=== PATIENT | male | born 1935 | race Caucasian/White ===

== ENCOUNTER 2018-12-22 09:51 | Emergency (ER) | payer MEDICARE, OTHER ==
[~2018-12-22 09:51] MED LIST: B2/V1TAB PO; CYAN50003 PO; LANS15CA12 PO; NAPR220C15 PO; ROSU20TA23 PO; SAW450CA7 PO; TIMO5DRO27 OD
[2018-12-22 10:38] LABS: BASOPHILS % (AUTO) 0.5 % (0.0-5.0); EOSINOPHILS % (AUTO) 0.4 % (0.0-8.0); LYMPHOCYTES % (AUTO) 6.7 % (21.0-51.0); MEAN CORPUSCULAR HEMOGLOBIN 30.9 pg (27.0-33.0); MEAN CORPUSCULAR HGB CONC 33.8 g/dL (32.0-36.0); MEAN CORPUSCULAR VOLUME 91.6 fL (79-99); MONOCYTES % (AUTO) 8.4 % (3.0-13.0); PLATELET COUNT (AUTO) 234 K/uL (130-400); RED BLOOD CELL COUNT(AUTO) 5.02 MIL/uL (4.50-6.20); RED CELL DISTRIBUTION WIDTH 13.1 % (11.0-15.5); WHITE BLOOD COUNT (AUTO) 11.9 K/uL (4.8-10.8)
[2018-12-22 10:51] LABS: POTASSIUM 3.6 mmol/L (3.5-5.1)
[2018-12-22 10:57] LABS: ALBUMIN 3.8 g/dL (3.5-5.0); BILIRUBIN,TOTAL 0.9 mg/dL (0.2-1.0); TOTAL PROTEIN, SERUM 8.1 g/dL (6.0-8.3)
[2018-12-22] MEDS ORDERED: MORPHINE SULFATE 2 MG/ML 1ML SYG ONE (11:18)
[2018-12-22 11:59] LABS: APPEARANCE,URINE Clear (CLEAR); BILIRUBIN,URINE Negative (NEGATIVE); COLOR,URINE Yellow (YELLOW); GLUCOSE, URINE (UA) Negative (NEGATIVE); KETONES,URINE Negative (NEGATIVE); LEUKOCYTE ESTERASE ,URINE Moderate (NEGATIVE); NITRATE,URINE Negative (NEGATIVE); OCCULT BLOOD,URINE Trace (NEGATIVE); PH,URINE 6.5 (5.0-8.0); PROTEIN,URINE Negative (NEGATIVE)
[2018-12-22 12:41] LABS: BACTERIA,URINE Few /HPF (None Seen); RBC,URINE 0-1 /HPF (0-1)
[2018-12-22] MEDS ORDERED: LIDOCAINE 5% TOPICAL PATCH TP ONE (13:15)
== END 2018-12-22 14:33 | disposition home or self-care (01) ==
LOC: EDH 09:51
DX: M54.5 Low back pain (principal); I71.4 Abdominal aortic aneurysm, without rupture; E78.5 Hyperlipidemia, unspecified; I10 Essential (primary) hypertension; Z87.891 Personal history of nicotine dependence
CPT/HCPCS: 36415; 72131; 80053; 81001; 82270; 85025; 85651; 86140; 87077; 87088; 87186; 96374

== ENCOUNTER 2021-01-19 09:46 | Observation (INO) | payer OTHER ==
[2021-01-14 13:39] LABS: BASOPHILS % (AUTO) 1.1 % (0.0-5.0); EOSINOPHILS % (AUTO) 16.1 % (0.0-8.0); HEMATOCRIT 45.8 % (42-54); LYMPHOCYTES % (AUTO) 12.6 % (21.0-51.0); MEAN CORPUSCULAR HEMOGLOBIN 30.6 pg (27.0-33.0); MEAN CORPUSCULAR HGB CONC 32.3 g/dL (32.0-36.0); MEAN CORPUSCULAR VOLUME 94.8 fL (79-99); MONOCYTES % (AUTO) 10.1 % (3.0-13.0); NEUTROPHILS % (AUTO) 59.7 % (40.0-77.0); PLATELET COUNT (AUTO) 246 K/uL (130-400); RED BLOOD CELL COUNT(AUTO) 4.83 MIL/uL (4.50-6.20); RED CELL DISTRIBUTION WIDTH 13.9 % (11.0-15.5); WHITE BLOOD COUNT (AUTO) 10.7 K/uL (4.8-10.8)
[2021-01-14 13:50] LABS: INR 1.06 (0.85-1.15); PROTHROMBIN TIME 11.5 SEC (9.6-11.6)
[2021-01-14 14:19] LABS: CREATININE 0.9 mg/dL (0.5-1.5); POTASSIUM 5.1 mmol/L (3.5-5.1)
[~2021-01-19] VITALS: Ht 177.8 cm; Wt 59.0 kg
[2021-01-19] VITALS (22 sets, daily range): BP systolic 117–177; BP diastolic 57–108
[~2021-01-19 09:46] MED LIST changes: +ASCO500T20 PO; -B2/V1TAB PO; +BACI1TAB2 PO; +CEFAZOLIN SODIUM 1 GM VIAL IVP ONE; +CHOL100046 PO; +CYCL2DRO5 OD; -LANS15CA12 PO; +LOTE2.8D OD; -NAPR220C15 PO; +ROSU10TA22 PO; -ROSU20TA23 PO; +SODIUM CHLORIDE 0.9% 1000ML 1,000 ML IV SCH; +TIMO1DRO5 OD; -TIMO5DRO27 OD; +UBID100C45 PO
[2021-01-19] MEDS ORDERED: CEFAZOLIN SODIUM 1 GM VIAL ONE (10:53)
[2021-01-19] MEDS ORDERED: LACTATED RINGERS 1000ML 1,000 ML IV ONE (10:53)
[2021-01-19] MEDS ORDERED: SUCCINYLCHOLINE 200MG/10ML SYR ONE (11:31)
[2021-01-19] MEDS ORDERED: LIDOCAINE PF 100MG/5ML (2%) SYRINGE 5ML ONE (11:31)
[2021-01-19] MEDS ORDERED: PROPOFOL 10 MG/ML 20ML VIAL IV ONE (11:32)
[2021-01-19] MEDS ORDERED: FENTANYL CITRATE PF 50 MCG/1 ML 2ML VIAL ONE (11:32)
[2021-01-19] MEDS ORDERED: ROCURONIUM 10MG/1ML SYR 10 MG/ML ML ONE (11:32)
[2021-01-19] MEDS ORDERED: BUPIVACAINE/PF 0.5% 10ML VIAL ONE (12:06)
[2021-01-19] MEDS ORDERED: EPHEDRINE SULFATE 50 MG/ML AMPULE ONE (13:09)
[2021-01-19] MEDS ORDERED: MEPERIDINE-PF 25 MG/ML SYG ONE (14:26)
[2021-01-19] MEDS ORDERED: GLYCOPYRROLATE 1 MG/5 ML SYRINGE ONE (14:56)
[2021-01-19] MEDS ORDERED: NEOSTIGMINE 5MG/5ML SYR IV ONE (14:56)
[2021-01-19] MEDS ORDERED: HYDRALAZINE HCL 20 MG/ML VIAL ONE (16:01)
[2021-01-19] MEDS ORDERED: TRAMADOL HCL 50 MG TABLET PO PRN (17:00)
[2021-01-19] MEDS ORDERED: ONDANSETRON HCL 4 MG/2 ML VIAL IVP PRN (17:00)
[2021-01-19] MEDS: SIMETHICONE 80 MG TAB.CHEW PO PRN (20:50)
[2021-01-19] MEDS ORDERED: TAMSULOSIN HCL 0.4 MG CAP.ER.24H PO SCH (21:00)
[2021-01-20] VITALS: BP 108/61
[2021-01-20 04:00] VITALS: BP 139/65
[2021-01-20] MEDS ORDERED: DOCUSATE SODIUM 100 MG CAP PO SCH (09:00)
[2021-01-20 09:45] VITALS: BP 121/61
[2021-01-20] MEDS: SIMETHICONE 80 MG TAB.CHEW PO PRN (10:51)
[2021-01-20 15:03] VITALS: BP 135/63
== END 2021-01-20 18:15 | disposition home or self-care (01) ==
LOC: DAH 09:46 → DAHIP 09:47 → DAH 09:47 → 3BH 18:05
PROVIDERS: ADMIT Student in an Organized Health Care Education/Training Program; ATTEND Student in an Organized Health Care Education/Training Program
DX: K40.20 Bilateral inguinal hernia, without obstruction or gangrene, not specified as recurrent (principal); Z20.822 Contact with and (suspected) exposure to COVID-19; Z85.46 Personal history of malignant neoplasm of prostate
CPT/HCPCS: 36415; 49650; 80048; 85025; 85610; 85730; 93005; 96361; 96374; A4215; A4221; A4222; A4223; A4344 ×2; A4663; A6260; C1769 ×2; C1781 ×2; C9803; G0168; G0378 ×26; J0330; J0360; J0690; J2001; J2175; J2405; J2704; J2710; J3010; J3490 ×3; J7030; J7120 ×2; U0003

== ENCOUNTER 2021-04-25 07:19 | Day surgery (SDC) | payer MEDICARE ==
[2021-04-19 12:52] LABS: BASOPHILS % (AUTO) 0.9 % (0.0-5.0); EOSINOPHILS % (AUTO) 2.3 % (0.0-8.0); HEMATOCRIT 44.2 % (42-54); LYMPHOCYTES % (AUTO) 11.7 % (21.0-51.0); MEAN CORPUSCULAR HGB CONC 31.9 g/dL (32.0-36.0); MEAN CORPUSCULAR VOLUME 90.9 fL (79-99); MONOCYTES % (AUTO) 12.6 % (3.0-13.0); NEUTROPHILS % (AUTO) 72.2 % (40.0-77.0); PLATELET COUNT (AUTO) 258 K/uL (130-400); RED BLOOD CELL COUNT(AUTO) 4.86 MIL/uL (4.50-6.20); RED CELL DISTRIBUTION WIDTH 14.9 % (11.0-15.5); WHITE BLOOD COUNT (AUTO) 7.8 K/uL (4.8-10.8)
[2021-04-19 13:08] LABS: BILIRUBIN,TOTAL 0.6 mg/dL (0.2-1.0); CREATININE 0.9 mg/dL (0.5-1.5); POTASSIUM 5.2 mmol/L (3.5-5.1); TOTAL PROTEIN, SERUM 8.9 g/dL (6.0-8.3)
[~2021-04-25] VITALS: Ht 180.3 cm; Wt 53.5 kg
[~2021-04-25 07:19] MED LIST changes: +0.9%NACL 1000ML 1,000 ML IV SCH; -CEFAZOLIN SODIUM 1 GM VIAL IVP ONE; -SODIUM CHLORIDE 0.9% 1000ML 1,000 ML IV SCH
[2021-04-25] MEDS ORDERED: PROPOFOL 10 MG/ML 20ML VIAL IV ONE ×3 (07:57→09:19)
[2021-04-25 08:03] VITALS: BP 179/104
[2021-04-25 09:35] VITALS: BP 139/86
[2021-04-25 09:40] VITALS: BP 155/98
[2021-04-25 09:45] VITALS: BP 170/89
[2021-04-25 11:45] VITALS: BP 169/80
== END 2021-04-25 11:45 | disposition home or self-care (01) ==
LOC: ENDO 07:19 → DAH 07:19 → ENDO 11:45
PROVIDERS: ATTEND Student in an Organized Health Care Education/Training Program
DX: R63.4 Abnormal weight loss (principal); K40.21 Bilateral inguinal hernia, without obstruction or gangrene, recurrent; I10 Essential (primary) hypertension; Z85.46 Personal history of malignant neoplasm of prostate; E78.00 Pure hypercholesterolemia, unspecified; Z79.899 Other long term (current) drug therapy; Z20.822 Contact with and (suspected) exposure to COVID-19
CPT/HCPCS: 36415; 45378; 71045; 74270; 80053; 85025; 87635; 93005; A4215 ×2; A4221; A4222; A4223; A4606; A4620; A4657; A4663; A6260; C9803; J2704 ×3; J7030